=== PATIENT | female | born 1940 | race Caucasian/White ===

== ENCOUNTER 2017-12-09 10:16 | Day surgery (SDC) | payer MEDICARE, OTHER ==
[~2017-12-09] VITALS: Ht 152.4 cm; Wt 40.0 kg
[~2017-12-09 10:16] MED LIST: AMOX200S7 PO; CLON.5 PO; CLON1 PO; DSS100 PO; ENOX30DI4 SQ; SODIUM CHLORIDE 0.9% 1,000 ML IV ONE; [UNRECOGNIZED DRUG - CODE] TP
[2017-12-09 10:58] LABS: BASOPHILS % (AUTO) 1.2 % (0.0-2.0); EOSINOPHILS % (AUTO) 2.1 % (1.0-6.0); HEMATOCRIT 37.1 % (36-46); HEMOGLOBIN 12.6 g/dL (12.0-16.0); MEAN CORPUSCULAR HEMOGLOBIN 28.5 pg (26.0-34.0); MEAN CORPUSCULAR VOLUME 84 fL (80-100); MONOCYTES # (AUTO) 0.6 K/uL (0.1-1.0); MONOCYTES % (AUTO) 8.9 % (2.0-9.0); NEUTROPHILS # (AUTO) 3.7 K/uL (1.8-7.7); NEUTROPHILS % (AUTO) 56.8 % (40.0-70.0); PLATELET COUNT (AUTO) 437 K/uL (150-450); RED BLOOD CELL COUNT(AUTO) 4.43 MIL/uL (4.00-5.20); RED CELL DISTRIBUTION WIDTH 13.8 % (11.5-14.5)
[2017-12-09] MEDS ORDERED: SODIUM CHLORIDE 0.9% 1,000 ML IV ONE (11:00)
[2017-12-09 11:04] LABS: PROTHROMBIN TIME 10.6 SEC (9.4-11.6)
[2017-12-09 11:10] LABS: ANION GAP 7 mmol/L (8-16); CALCIUM, TOTAL 8.8 mg/dL (8.8-10.5); CARBON DIOXIDE 29 mmol/L (22-29); CHLORIDE 103 mmol/L (98-107); CREATININE 0.65 mg/dL (0.60-1.30); GLUCOSE,RANDOM 130 mg/dL (70-110); POTASSIUM 3.5 mmol/L (3.5-5.1); SODIUM SERUM 139 mmol/L (136-145); UREA NITROGEN, BLOOD 16 mg/dL (7-18)
[2017-12-09 11:14] LABS: GLOMERULAR FILTR. RATE CALC > 60 mL/min (>60)
[2017-12-09 11:16] LABS: ALANINE AMINOTRANSFERASE 55 U/L (12-78); ALBUMIN 3.3 g/dL (3.4-5.0); ALKALINE PHOSPHATASE 106 U/L (46-116); ASPARTATE AMINOTRANSFERASE 33 U/L (15-37); BILIRUBIN,TOTAL 0.5 mg/dL (0.1-1.0); TOTAL PROTEIN, SERUM 7.8 g/dL (6.4-8.2)
[2017-12-09] MEDS ORDERED: PROPOFOL 1% 20 ML VIAL IVP ONE (12:00)
[2017-12-09] MEDS ORDERED: METOCLOPRAMIDE HCL 5 MG/ML 2 ML VIAL IVP ONE (12:00)
== END 2017-12-09 14:45 ==
LOC: SURGERY 10:16
PROVIDERS: ATTEND Internal Medicine Gastroenterology
DX: K94.23 Gastrostomy malfunction (principal); L90.5 Scar conditions and fibrosis of skin; R13.10 Dysphagia, unspecified; F32.9 Major depressive disorder, single episode, unspecified; E11.9 Type 2 diabetes mellitus without complications; F41.8 Other specified anxiety disorders; F10.21 Alcohol dependence, in remission; K21.9 Gastro-esophageal reflux disease without esophagitis; M19.90 Unspecified osteoarthritis, unspecified site; M19.011 Primary osteoarthritis, right shoulder; M19.012 Primary osteoarthritis, left shoulder; M85.88 Other specified disorders of bone density and structure, other site; Z79.2 Long term (current) use of antibiotics; Z79.01 Long term (current) use of anticoagulants; Z87.891 Personal history of nicotine dependence; Z87.19 Personal history of other diseases of the digestive system; Z86.73 Personal history of transient ischemic attack (TIA), and cerebral infarction without residual deficits; Z90.710 Acquired absence of both cervix and uterus; Z86.19 Personal history of other infectious and parasitic diseases; Z79.899 Other long term (current) drug therapy; Z98.890 Other specified postprocedural states
CPT/HCPCS: 36415; 43246; 71045; 80053; 85025; 85610; 85730; 93005; J0690; J2704; J2765; J7030